=== PATIENT | female | born 1970 | race Caucasian/White ===

== ENCOUNTER 2023-01-12 09:55 | Emergency (ER) | payer BC, SELFPAY ==
[2023-01-12 09:56] VITALS: BP 168/95; PULSE 90; RESP 18; TEMP 36.4; O2SAT 99; BMI 36.1
--- NOTE | 2023-01-12 10:19 | CT_ITS ---
STUDY: CT SOFT TISSUE NECK WITH CONTRAST REASON FOR EXAM: Female, 52 years old. possible left peritonsilar abscess RADIATION DOSAGE (If Supplied By Facility): CTDIvol = ( 17.87 ) mGy, DLP = ( 625.17 ) mGycm TECHNIQUE: The patient was scanned in a multi-detector CT scanner. High resolution transaxial imaging was performed following intravenous administration of IV 75mL Isovue-370. Sagittal and coronal images were reconstructed. Individualized dose optimization techniques were used for this CT. COMPARISON: None. FINDINGS: Normal bilateral parotid glands. Normal bilateral cleaning technician spaces. Normal bilateral parapharyngeal spaces. Normal bilateral carotid spaces. Normal bilateral sublingual and submandibular glands and spaces. Normal visualized nasopharynx. Normal retropharyngeal space. Normal perivertebral space. Enlargement of the left lingual tonsil with a 1.2 cm oval area of decreased attenuation but no enhancing wall worrisome for tonsillitis with phlegmon/developing abscess formation. Protrusion into the airway producing airway narrowing. The visualized tongue, tongue base and oropharynx are normal. Associated reactive left jugular lymphadenopathy the level of the floor the mouth measuring 1.4 x 1.4 cm. There is no demonstrated solid or cystic mass lesion. There is no abnormal contrast enhancement. Normal epiglottis, bilateral vallecula and hypopharynx. The pre-epiglottic and paraglottic adipose spaces are normal. Normal visualized bilateral piriform sinuses, aryepiglottic folds, vocal cords, and arytenoid-cricoid articulations. Normal subglottic trachea. Normal bilateral lobes of the thyroid gland. Normal visualized pulmonary apices. Normal visualized paranasal sinuses. Normal visualized cervical spine. CT/Soft Tissue Neck WITH Contrast IMPRESSION: Left tonsillitis with 1.2 cm area of phlegmon/developing abscess and associated reactive left jugular lymphadenopathy. Electronically Signed: Serg Ramirez MD at 12:57 EDT ,
--- NOTE | 2023-01-12 10:20 | EX.ED.DYSGE1 ---
HPI History of Present Illness Chief Complaint: Abscess Detail of Chief Complaint: Sore throat. Informant: patient Onset/Context/Timing Onset: Days Context: Gradual Onset Current Severity: Mild Maximum Severity: Mild Narrative Narrative: 52-year-old female no seen past medical or surgical history. Says she has had a sore throat since Friday or Friday has progressively worsened. She was seen by nurse practitioner today at [facility] they wonder come in to be evaluated. Patient is able to swallow states is uncomfortable. She denies any fever. Prior similar symptoms: Yes Recent Illness/Hospitalization: No PFSH PFSH Medical History no medical history no medical history Home Medications amoxicillin 875 mg-potassium clavulanate 125 mg tablet 1 tab PO BID Peritonsillar abscess 10 days #20 tabs 01/12/23 [Rx Last Taken Unknown] methylprednisolone 4 mg tablets in a dose pack (Medrol (Hay)) 4 mg PO DAILY #21 tabs 01/12/23 [Rx Last Taken Unknown] Allergy/AdvReac Type Severity Reaction Status Date / Time No Known Allergies Allergy Verified 01/12/23 09:56 Surgical History no surgical history Social History Smoking Status: Never smoker ROS ROS ED ROS Narrative Sore throat. Review of Systems ROS Unobtainable: Denies due to encephalopathy or other Constitutional Constitutional ED: Denies chills or fever(s) Eyes Eyes: Denies blurry vision ENT ENT ED: Reports sore throat; Denies ear pain or rhinorrhea Cardiovascular Cardiovascular: Denies chest pain Respiratory/Chest Respiratory/Chest: Denies cough or dyspnea Gastrointestinal Gastrointestinal: Denies abdominal pain Genitourinary Genitourinary ED: Denies dysuria Musculoskeletal Musculoskeletal: Denies arthralgias Integumentary Denies abscess Neurologic Neurologic: Denies headache(s) Psychiatric Psychiatric: Denies anxiety or depression Endocrine Endocrinology: Denies cold intolerance Hematologic/Lymphatic Hematologic/Lymphatic: Reports none Allergic/Immunologic Allergic/Immunologic ED: Denies mouth swelling or tongue swelling EXAM Physical Exam Narrative Exam Narrative: Well-appearing 52-year-old female. Vital signs stable afebrile. She does not look septic or toxic. She is able to handle her own secretions. HEENT exam posterior pharynx red primarily on the left. No exudate. He is asymmetrical with the left side of the throat and tonsil enlarged and pushing forward. There is no obvious abscess. There is no exudate. She is able to handle her own secretions. There is no stridor or drooling. TMs are normal bilaterally. Neck nontender no lymphadenopathy. Lungs clear. Heart regular rhythm. Abdomen soft. Otherwise exam unremarkable. Const Vital Signs: 01/12/23 09:56 Temperature 97.6 F L Temperature Source Temporal Pulse Rate 90 Respiratory Rate 18 Blood Pressure 168/95 H Blood Pressure Mean 119 Pulse Ox 99 Oxygen Delivery Method Room Air Positive well nourished and well developed; Negative for cachectic, contractures or unkempt General Appearance ED: well developed and NAD; Negative for unkempt, cachectic, contractures, cyanotic, diaphoretic or pallor Nutritional Appearance: Negative for cachectic HEENT Reports moist mucous membranes HEENT Narrative: Posterior pharynx red on the left. No exudate. Asymmetrical. No obvious abscess. Able to swallow. No stridor or drooling. Able to handle own secretions. Negative for trauma or tenderness Eyes PERRL and EOMs intact bilaterally General Eye ED: Negative for pale conjunctiva or scleral icterus Neck no lymphadenopathy, supple and no JVD General: Negative for tenderness Lymph Lymphatic: Negative for other Chest Wall inspection of chest normal and palpation of chest normal Chest: Negative for other Resp normal respiratory effort and clear to auscultation bilaterally Effort and Inspection: Negative for retractions or pain with movement Auscultation: Negative for rales, rhonchi or wheezes Cardio regular rate, regular rhythm, S1 normal heart sound, S2 normal heart sound and no murmurs GI normal to inspection, nondistended, normoactive bowel sounds, non-tender, non-distended and no masses Inspection: Negative for abdominal distention Auscultation: normoactive bowel sounds Palpation: soft; Negative for tender or guarding Bladder / Kidney Exam: No other Back/Spine no CVA tenderness General Back: Negative for CVA tenderness Cervical Spine: Negative for cervical spine tenderness Thoracic Spine / Upper Back: Negative for thoracic spinal tenderness Lumbar Spine / Lower Back: Negative for lumbar spinal tenderness Extremity normal to inspection General Extremety ED: Negative for edema or tenderness General Extremity: Negative for edema Neuro oriented x3 and CN's II-XII intact bilaterally Sensorium / Orientation: alert; Negative for orientation impaired, lethargic or stuporous Motor Exam: strength 5/5 throughout; Negative for general weakness Psych mental status grossly normal Appearance: Negative for unkempt Attitude: No agitated Mood & Affect: Negative for depressed, anxious or tearful Skin no rashes or lesions noted, no wounds and skin turgor normal General Skin Exam: elasticity normal; Negative for jaundice or pallor Lesions: No lesion noted Rashes: No rashes noted Trauma: Negative for abrasion Wounds: Negative for wounds noted MDM MDM MDM Narrative Medical decision making narrative: 52-year-old female sore throat. Rule out strep throat versus peritonsillar abscess versus viral pharyngitis or allergic drainage. CT of the neck to be obtained with a rapid strep. Patient has either inflammation, phlegmon or early abscess on the left side near her tonsil. Area was numbed using Cetacaine spray. I attempted aspiration with a 22-gauge needle and was able to remove any pus. She tolerated it well. She will be started on a Medrol Dosepak and the antibiotic Augmentin. She was already given a dose antibiotic here and she will be given a dose of the steroid prior to discharge. She is clinically doing well. She has received Motrin for pain. She is comfortable being discharged home. She is having no trouble breathing and is able to swallow. She lives in [place] I spoke to the ENT in her area, Dr. Mueller, they will ensure close follow-up tomorrow. She will call their office first thing in the morning. Warm salt water gargling. History & Record Review Discussion w/independent historian: Patient Lab Data Lab results narrative: Rapid strep test is negative. Radiography Diagnostic Testing: Clinical Impression(s) from Imaging Studies Soft Tissue Neck CT 01/12/23 10:19 IMPRESSION: Left tonsillitis with 1.2 cm area of phlegmon/developing abscess and associated reactive left jugular lymphadenopathy. Electronically Signed: Serg Ramirez MD at 12:57 EDT , Discharge Plan Triage Chief Complaint: Abscess ED Provider: Harjinder Boggs Dx/Rx/DC Orders Clinical Impression: Abscess, peritonsillar Instructions: ED Peritonsillar Abscess Prescriptions: New amoxicillin-pot clavulanate 875-125 mg tablet 1 tab PO BID 10 Days Qty: 20 0RF methylprednisolone [Medrol (Hay)] 4 mg tablets,dose pack 4 mg PO DAILY Qty: 21 0RF Primary Care Provider: KODY WHELAN CNP Referrals: Care Physician,No Primary [Non-Staff] - Activity Restrictions/Additional Instructions: Call and follow-up with your ENT office tomorrow. I spoke to Dr. Mueller today. Their office number is area code [phone]. Call them first thing Friday morning they will see you Friday or Friday. Warm salt water gargling. Motrin and Tylenol for pain. Steroid to decrease the inflammation and pain. The antibiotic Augmentin 1 pill twice a day till gone. This should progressively improve. If you are feeling a lot worse trouble swallowing that gets a lot worse then go to a local ER in [place]. Disposition Disposition: Home, Self Care
[2023-01-12 13:55] VITALS: BP 124/83; PULSE 75; RESP 16; O2SAT 98
[2023-01-12] MEDS: AMOXICILLIN 500 MG CAPSULE PO (15:38)
[2023-01-12] MEDS: Ibuprofen 600 MG Tablet PO (15:44)
[2023-01-12] MEDS: MethylPREDNISolone 4 MG Tablet PO (16:38)
[2023-01-12 16:48] VITALS: BP 117/72; PULSE 69; RESP 16; TEMP 36.9; O2SAT 99
== END 2023-01-12 16:49 | disposition home or self-care (01) ==
PROVIDERS: Emergency Provider Emergency Medicine; Visit Provider Emergency Medicine
DX: J36 Peritonsillar abscess (principal)
CPT/HCPCS: 42700; 70491; 87880; 99283; Q9967; A4216